=== PATIENT | male | born 2000 | race Caucasian/White ===

== ENCOUNTER 2024-09-09 14:20 | Emergency (ER) | payer MEDICAID ==
[~2024-09-09] VITALS: Ht 188 cm; Wt 90.7 kg
[2024-09-09 14:27] VITALS: BP 126/69; PULSE 76; RESP 16; TEMP 98.7; O2SAT 99
[2024-09-09] MEDS ORDERED: IBUP-2029 MT (15:57)
== END 2024-09-09 16:10 | disposition home or self-care (01) ==
LOC: ER 14:20
DX: M54.9 Dorsalgia, unspecified (principal)
CPT/HCPCS: 99282